=== PATIENT | female | born 1955 | race Two or more races ===

== ENCOUNTER 2025-05-16 06:00 | Day surgery (SDC) | payer OTHER ==
[2025-05-09 08:31] VITALS: BP 128/80
[2025-05-09 08:45] LABS: BASO % 1.1 % (0.1-1.2); EOS # 0.08 (0.04-0.54); EOS % 2.3 % (0.7-7.0); LYMPH # 1.13 (1.18-3.74); LYMPH % 31.9 % (19.3-53.1); MEAN PLATELET VOLUME 9.20 fl (9.4-12.4); MONO # 0.64 (0.24-0.82); NEUT # 1.64 (1.56-6.13); NEUT % 46.3 % (34.0-71.1); RED CELL DISTRIBUTION WIDTH 15.7 % (11.6-14.4)
[2025-05-09 08:56] LABS: MONO % 18.1 % (4.7-12.5)
[2025-05-09 08:59] LABS: URINE APPEARANCE Clear; URINE BILIRRUBIN Negative (NEGATIVE); URINE BLOOD Trace; URINE COLOR Yellow; URINE KETONE Trace (NEGATIVE); URINE LEUKOCYTE Negative; URINE NITRATE Negative; URINE PROTEIN Negative (NEGATIVE); URINE UROBILINOGEN 0.2 E.U./dl
[2025-05-09 09:03] LABS: URINE BACTERIA 13.1 uL (0.0-1933); URINE EPITHELIAL CELLS 4.5 uL (0.0-38.8); URINE RBC 6.3 uL (0.0-20.8); URINE WBC 2.6 uL (0.0-23.2)
[2025-05-09 09:07] LABS: URINE CAST 0.29 uL (0.0-1.40); URINE GLUCOSE >=1000 MG/DL (NEGATIVE)
[2025-05-09 09:22] LABS: INR 0.99
[2025-05-09 09:30] LABS: ALT/SGPT 22.0 U/L (12-78); AST/SGOT 15.0 U/L (15-37); BILIRUBIN TOTAL 0.61 mg/dL (0.3-1.2); BUN CREA RATIO 25.0 (7.0-25.0); CREATININE SERUM 0.65 mg/dL (0.55-1.02); GFR 89.85; GLOBULINA 2.7 G/DL (2.4-3.5); GLUCOSE FASTING 100.0 mg/dL (65-100); OSMOLALITY SERUM 284.0 MOSM/KG (275-295)
[~2025-05-16] VITALS: Ht 162.6 cm; Wt 79.4 kg
[~2025-05-16 06:00] MED LIST: ATORVASTATIN CA10 MG PO; COZAAR50 MG PO; JARDIANCE10 MG PO; METFORMIN HCL1000 M2 PO; NOVOLIN N100 UNIT/1
[2025-05-16] MEDS ORDERED: BUPIVACAINE HCL/MPF 0.5% 30ML VIAL ONE (06:44)
[2025-05-16] MEDS ORDERED: hydrALAZINE HCL 20 MG VIAL ONE (08:31)
== END 2025-05-16 10:25 | disposition home or self-care (01) ==
LOC: CIR.AMB 06:00
PROVIDERS: ATTEND Orthopaedic Surgery Hand Surgery
DX: D21.12 Benign neoplasm of connective and other soft tissue of left upper limb, including shoulder (principal); R22.32 Localized swelling, mass and lump, left upper limb